=== PATIENT | male | born 1990 | race Caucasian/White ===

== ENCOUNTER 2017-10-29 22:51 | Emergency (ER) | payer OTHER ==
[2017-10-29] MEDS: BACITRACIN TOPICAL OINT 14GM TUBE. TP (23:45)
[2017-10-29] MEDS: DIPHTH,PERTUSS(ACELL),TET TOX 0.5 ML DISP.SYRIN. VAX IM (23:51)
== END 2017-10-29 23:50 | disposition home or self-care (01) ==
LOC: ER 22:51
DX: T23.162A Burn of first degree of back of left hand, initial encounter (principal); X15.3XXA Contact with hot saucepan or skillet, initial encounter; Y93.89 Activity, other specified; Y99.0 Civilian activity done for income or pay; Y92.69 Other specified industrial and construction area as the place of occurrence of the external cause
CPT/HCPCS: 90471; 90715; 99283-25